=== PATIENT | male | born 1930 | race Caucasian/White ===

== ENCOUNTER → 2018-01-21 | Outpatient (REF) ==
[~2018-01-21] MED LIST: ALAVERT10 MG PO; CYCLOBENZAPRINE10 MG PO; DAPSONE25 MG PO; FERRATE325 MG PO; FINASTERIDE5 MG PO; FLUNISOLIDE NS; FOLIC ACID 40400 MCG PO; HCTZ 25MG25 MG PO; LISINOPRIL20 MG PO; NIACIN500 M3 PO; PRILOSEC 20MG20 MG PO; PROPRANOLOL10 MG PO; SIMVASTATIN40 MG PO; VITAMIN C BUFF500 MG PO
== END ==
LOC: ZLAB.WCH 15:44
DX: Z01.89 Encounter for other specified special examinations (principal)

== ENCOUNTER → 2018-07-04 | Outpatient (REF) | LOC: ZLAB.WCH 17:55 | DX: Z01.89 Encounter for other specified special examinations (principal) ==